=== PATIENT | female | born 1975 | race Caucasian/White ===

== ENCOUNTER 2016-06-07 17:43 | Emergency (ER) | payer OTHER ==
--- NOTE | 2016-06-07 18:15 | UCPHY ---
H & P Patient Type: New Chief Complaint Nursing Narrative: sore throat, body aches, headache x 8 days. son has strep Time Seen by Provider: 06/07/16 18:09 HPI/ROS: CHIEF COMPLAINT: Sore throat HISTORY OF PRESENT ILLNESS: Patient is a 41-year-old female who comes to the Urgent Care complaining of a sore throat and low-grade fever and mild headache for the last 8 or 9 days. Today her daughter was diagnosed with strep throat. She is requesting antibiotics. She denies having any chest pain, shortness of breath or abdominal pain. She has a history of migraines but states that her headache is not typical of migraines and is much more mild. No visual symptoms. REVIEW OF SYSTEMS: Constitutional: See HPI EENTM: see HPI Respiratory: denies: cough, shortness of breath Cardiac: denies: chest pain, irregular heart rate, lightheadedness, palpitations Gastrointestinal/Abdominal: denies: abdominal pain, diarrhea, nausea, vomiting, blood streaked stools Genitourinary: denies: dysuria, frequency, hematuria, pain Musculoskeletal: denies: joint pain, muscle pain Skin: denies: lesions, rash, jaundice, bruising Neurological: See HPI denies: numbness, paresthesia, tingling, dizziness, weakness Hematologic/Lymphatic: denies: blood clots, easy bleeding, easy bruising Immunologic/allergic: denies: HIV/AIDS, transplant EXAM: GENERAL: Well-appearing, well-nourished and in no acute distress. HEAD: Atraumatic, normocephalic. EYES: Pupils equal round and reactive to light, extraocular movements intact, sclera anicteric, conjunctiva are normal. ENT: Oropharynx erythematous, no exudate, tympanic membranes clear, sinus congestion, anterior cervical lymphadenopathy NECK: Normal range of motion, supple without lymphadenopathy or JVD. LUNGS: Breath sounds clear to auscultation bilaterally and equal. No wheezes rales or rhonchi. HEART: Regular rate and rhythm without murmurs, rubs or gallops. ABDOMEN: Soft, nontender, normoactive bowel sounds. No guarding, no rebound. No masses appreciated. BACK: No CVA tenderness, no spinal tenderness, step-offs or deformities EXTREMITIES: Normal range of motion, no pitting or edema. No clubbing or cyanosis. NEUROLOGICAL: Cranial nerves II through XII grossly intact. Normal speech, normal gait. 5/5 strength, normal movement in all extremities, normal sensation PSYCH: Normal mood, normal affect. SKIN: Warm, dry, normal turgor, no visible rashes or lesions. Source: Patient Exam Limitations: No limitations - Personal History LMP (Females 10-55): 8-14 Days Ago - Medical/Surgical History Hx Asthma: No Hx Chronic Respiratory Disease: No Hx Diabetes: No Hx Cardiac Disease: No Hx Renal Disease: No Hx Cirrhosis: No Hx Alcoholism: No Hx HIV/AIDS: No Hx Splenectomy or Spleen Trauma: No Other PMH: migraines - Family History Significant Family History: No pertinent family hx - Social History Smoking Status: Never smoked Alcohol Use: Sober Drug Use: None Constitutional: Initial Vital Signs Temperature (C) 37 C 06/07/16 17:53 Heart Rate 61 06/07/16 17:53 Respiratory Rate 16 06/07/16 17:53 Blood Pressure 102/77 06/07/16 17:53 O2 Sat (%) 99 06/07/16 17:53 O2 Delivery Mode Room Air Allergies/Adverse Reactions: Penicillins Allergy (Verified 06/07/16 17:53) Home Medications: Medication Instructions Recorded AZITHROMYCIN [Z-PACK] 250 mg PO DAILY #6 tab 06/07/16 Zomig 06/07/16 Medical Decision Making ED Course/Re-evaluation: The patient has symptoms classic for strep throat and a exposure 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 Her son was strep positive today at the web marketing analyst's office. We decided not to perform testing here but simply to treat. Patient declines further workup or testing. Differential Diagnosis: Partial list of the Differential diagnosis considered include but were not limited to; strep throat, pharyngitis, abscess, mononucleosis and although unlikely based on the history and physical exam, I also considered migraine, sepsis, meningitis. I discussed these differential diagnoses and the plan with the patient as well as the usual and expected course. The patient understands that the diagnosis is provisional and that in medicine we are not always correct and that further workup is often warranted. Usual and customary warnings were given. All of the patient's questions were answered. The patient was instructed to return to the emergency department should the symptoms at all worsen or return, otherwise to followup with the physician as we discussed. - Data Points Laboratory Results: 06/07/16 06/07/16 Unknown 18:00 Group A Strep Screen NEGATIVE (NEGATIVE) Group A Strep DNA Pending Departure - Departure Disposition: Home, Routine, Self-Care Clinical Impression: Strep throat Condition: Fair Instructions: Strep Throat (ED) Referrals: Jo Silva MD [[facility] [place] Primary Care Provider] - As per Instructions Prescriptions: AZITHROMYCIN [Z-PACK] 250 mg PO DAILY #6 tab - PQRS PQRS Measurement: Not applicable
[2016-06-07 18:33] VITALS: BP 110/65; PULSE 72; RESP 18; TEMP 98.6; O2SAT 95
== END 2016-06-07 18:32 | disposition home or self-care (01) ==
LOC: CED 17:43
DX: R07.0 Pain in throat (principal); R50.9 Fever, unspecified; Z20.818 Contact with and (suspected) exposure to other bacterial communicable diseases
CPT/HCPCS: 87880-PO; G0463-PO

== ENCOUNTER → 2018-03-09 | Outpatient (CLI) | payer OTHER | LOC: BMCIMAGING 14:50 | PROVIDERS: ATTEND Family Medicine | DX: Z12.31 Encounter for screening mammogram for malignant neoplasm of breast (principal) ==

== ENCOUNTER → 2018-03-17 | Outpatient (CLI) | payer OTHER | LOC: BMCIMAGING 10:46 | PROVIDERS: ATTEND Family Medicine | DX: R92.8 Other abnormal and inconclusive findings on diagnostic imaging of breast (principal) ==

== ENCOUNTER → 2018-04-05 | Outpatient (CLI) | payer OTHER ==
[~2018-04-05] MED LIST: BUPIVACAINE 0.5% 30 ML SDV ONE; LIDOCAINE 1% 300 MG/30 ML SDV ONE
== END ==
LOC: FIMAGING 07:16
PROVIDERS: ATTEND Family Medicine
PROC: 0HBU3ZX Excision of Left Breast, Percutaneous Approach, Diagnostic (ICD-10-PCS; principal; 2018-04-05)
DX: D05.82 Other specified type of carcinoma in situ of left breast (principal)

== ENCOUNTER → 2018-04-12 | Outpatient (CLI) | payer OTHER ==
[~2018-04-12] MED LIST changes: -BUPIVACAINE 0.5% 30 ML SDV ONE; +GADOBUTROL 10 ML VIAL IVP ONE; -LIDOCAINE 1% 300 MG/30 ML SDV ONE
== END ==
LOC: FIMAGING 07:39
PROVIDERS: ATTEND Family Medicine
DX: N64.59 Other signs and symptoms in breast (principal); N63.22 Unspecified lump in the left breast, upper inner quadrant; C50.912 Malignant neoplasm of unspecified site of left female breast
CPT/HCPCS: A9585; C8908

== ENCOUNTER → 2018-04-14 | Outpatient (CLI) | payer OTHER | LOC: FIMAGING 14:18 ==

== ENCOUNTER 2018-04-20 07:48 | Outpatient (CLI) | payer OTHER ==
[2018-04-20] MEDS ORDERED: FLUMAZENIL 0.5 MG/5 ML MDV IVP PRN (08:07)
[2018-04-20] MEDS ORDERED: fentaNYL 100 MCG/2 ML INJ IVP PRN (08:07)
[2018-04-20] MEDS ORDERED: MIDAZOLAM 2 MG/2 ML VIAL IVP PRN (08:07)
[2018-04-20] MEDS ORDERED: NALOXONE HCL 0.4 MG/ML INJ IVP PRN (08:07)
[2018-04-20] MEDS ORDERED: NS 1,000 ML IV SCH (08:15)
[2018-04-20] MEDS ORDERED: GADOBUTROL 10 ML VIAL IVP ONE (08:26)
[2018-04-20] MEDS ORDERED: LIDOCAINE 1% 5 ML SDV ONE (08:42)
[2018-04-20] MEDS ORDERED: BUPIVACAINE 0.5% 30 ML SDV ONE (08:43)
[2018-04-20] MEDS ORDERED: NA BICARBONATE 50 MEQ/50 ML VIAL ONE (08:43)
[2018-04-20] MEDS ORDERED: fentaNYL 100 MCG/2 ML INJ ONE ×2 (09:00→09:12)
[2018-04-20] MEDS ORDERED: FLUMAZENIL 0.5 MG/5 ML MDV IVP ONE (09:12)
[2018-04-20] MEDS ORDERED: MIDAZOLAM 2 MG/2 ML VIAL ONE (09:12)
[2018-04-20] MEDS ORDERED: NALOXONE HCL 0.4 MG/ML INJ ONE (09:12)
--- NOTE | 2018-04-20 09:24 | PDGENHP ---
History & Physical Chief Complaint: left breast cancer, abnormality right breast Cardiorespiratory Assessment: heart rate regular, lungs clear
--- NOTE | 2018-04-20 09:25 | PDPROPOC ---
Sedation Plan of Care Sedation Plan of Care: vital signs stable, mental status noted, patient educated of risks, benefits, alternatives, patient can tolerate sedation ASA Classification: ASA 1 Planned drugs: fentanyl, midazolam Mallampati Score: Class 1 Mallampati Reference Image: Patient passed 3-3-2 rule?: Yes
[2018-04-20 11:47] VITALS: BP 110/67
[2018-04-20] MEDS ORDERED: ACETAMINOPHEN 325 MG TAB PO PRN (12:13)
[2018-04-20] MEDS ORDERED: ONDANSETRON 4 MG/2 ML VIAL IVP PRN (12:13)
== END 2018-04-20 11:48 | disposition home or self-care (01) ==
LOC: FIMAGING 07:48
PROVIDERS: ATTEND Surgery
DX: R92.8 Other abnormal and inconclusive findings on diagnostic imaging of breast (principal); Z85.3 Personal history of malignant neoplasm of breast
CPT/HCPCS: A9585; J2250; J2310; J3010

== ENCOUNTER 2018-05-12 06:31 | Day surgery (SDC) | payer OTHER ==
[2018-05-12] MEDS ORDERED: ceFAZolin 2 GM/DEXTROSE 100 ML IV ONE (06:48)
[2018-05-12] MEDS ORDERED: LR 1,000 ML IV ONE (06:50)
[2018-05-12] MEDS ORDERED: LIDOCAINE 1% 300 MG/30 ML SDV ONE (07:27)
[2018-05-12] MEDS ORDERED: GABAPENTIN 300 MG CAP PO ONE (09:00)
--- NOTE | 2018-05-12 10:49 | PDANEPAE ---
ANE Past Medical History - Cardiovascular History Hx Hypertension: No Hx Arrhythmias: No Hx Chest Pain: No Hx Coronary Artery / Peripheral Vascular Disease: No Hx CHF / Valvular Disease: No Hx Palpitations: No - Pulmonary History Hx COPD: No Hx Asthma/Reactive Airway Disease: No Hx Recent Upper Respiratory Infection: No Hx Oxygen in Use at Home: No Hx Sleep Apnea: No Sleep Apnea Screening Result - Last Documented: Negative Pulmonary History Comment: none - Neurologic History Hx Cerebrovascular Accident: No Hx Seizures: No Hx Dementia: No - Endocrine History Hx Diabetes: No - Renal History Hx Renal Disorders: No - Liver History Hx Hepatic Disorders: No - Neurological & Psychiatric Hx Hx Neurological and Psychiatric Disorders: No - Cancer History Hx Cancer: Yes Cancer History Comment: L breast CA - Congenital Disorder History Hx Congenital Disorders: Yes 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 BIOPSY ANE Review of Systems Review of Systems: - Exercise capacity METS (RN): 5 METS ANE Patient History - Allergies Allergies/Adverse Reactions: Penicillins Allergy (Verified 05/03/18 16:34) - Home Medications Home Medications: Zomig PRN 06/07/16 [Last Taken 05/08/18] Ambien PRN 04/18/18 [Last Taken 05/11/18] - NPO status NPO Since - Liquids (Date): 05/12/18 NPO Since - Liquids (Time): 07:00 NPO Since - Solids (Date): 05/11/18 NPO Since - Solids (Time): 20:00 - Smoking Hx Smoking Status: Never smoked - Family Anes Hx Family Hx Anesthesia Complications: none ANE Labs/Vital Signs - Vital Signs Blood Pressure: 103/71 Heart Rate: 59 Respiratory Rate: 16 O2 Sat (%): 96 Height: 170.18 cm Weight: 66.224 kg ANE Physical Exam - ASA Status ASA Status: II ANE Anesthesia Plan Anesthesia Plan: GA w LMA
--- NOTE | 2018-05-12 10:51 | PDHPUP ---
History & Physical Update H&P update statement: This history and physical update is based on an assessment of the patient which was completed after admission or registration (within 24 hours), but prior to the surgery/procedure. H&P update: H&P reviewed & patient examined, no change in patient's condition since H&P completed
[2018-05-12] MEDS ORDERED: MIDAZOLAM 2 MG/2 ML VIAL ONE (10:52)
[2018-05-12] MEDS ORDERED: fentaNYL 100 MCG/2 ML INJ ONE (10:53)
[2018-05-12] MEDS ORDERED: ONDANSETRON 4 MG/2 ML VIAL ONE ×2 (10:54→13:03)
[2018-05-12] MEDS ORDERED: PROPOFOL 200 MG/20 ML VIAL ONE (10:54)
[2018-05-12] MEDS ORDERED: LIDOCAINE 2% JELLY 6 ML TOPICAL SYR ONE (10:54)
[2018-05-12] MEDS ORDERED: METOCLOPRAMIDE 10 MG/2 ML VIAL ONE (10:54)
[2018-05-12] MEDS ORDERED: CEFAZOLIN 2 GM/DEXTROSE/100 ML BAG IV ONE (10:55)
[2018-05-12] MEDS ORDERED: BUPIVACAINE/EPI 0.25% 30 ML SDV ONE (11:04)
[2018-05-12] MEDS ORDERED: NA BICARBONATE 50 MEQ/50 ML VIAL ONE (11:04)
[2018-05-12] MEDS ORDERED: LIDO/EPI 1% **for epidural** 30 ML SDV ONE (11:05)
[2018-05-12] MEDS ORDERED: DEXAMETHASONE 4 MG/ML VIAL IVP ONE (12:00)
[2018-05-12] MEDS ORDERED: AVITENE POWDER 1 GM JAR TP ONE (12:24)
[2018-05-12] MEDS ORDERED: ONDANSETRON 4 MG/2 ML VIAL IVP PRN (13:00)
[2018-05-12] MEDS ORDERED: NALOXONE HCL 0.4 MG/ML INJ IVP PRN (13:00)
[2018-05-12] MEDS ORDERED: LR 500 ML IV PRN (13:00)
[2018-05-12] MEDS ORDERED: HYDROCODONE/APAP 5/325 TAB PO PRN (13:00)
[2018-05-12] MEDS ORDERED: PROMETHAZINE HCL 25 MG/ML INJ IVP PRN (13:00)
[2018-05-12] MEDS ORDERED: fentaNYL 100 MCG/2 ML INJ IVP PRN (13:00)
[2018-05-12] MEDS ORDERED: MEPERIDINE 25 MG/0.5 ML AMP IVP PRN (13:00)
[2018-05-12] MEDS ORDERED: DEXAMETHASONE 4 MG/ML VIAL IVP PRN (13:00)
--- NOTE | 2018-05-12 13:01 | POSTANESTH ---
Post Anesthetic Evaluation Cardiovascular Status: Normal, Stable Respiratory Status: Normal, Stable Level of Consciousness/Mental Status: Can Participate in Eval Pain Control: Adequate, Prn Tx Ordered Nausea/Vomiting Control: Adequate, Prn Tx Ordered Complications Possibly Related to Anesthesia: None Noted
[2018-05-12] MEDS ORDERED: DEXAMETHASONE 4 MG/ML VIAL ONE (13:12)
[2018-05-12] MEDS ORDERED: PROMETHAZINE HCL 25 MG/ML INJ ONE (13:15)
[2018-05-12] MEDS ORDERED: ONDANSETRON DISINTEGRATING 4 MG TAB PO PRN (13:23)
--- NOTE | 2018-05-12 13:31 | POSTOPPROG ---
Post Op Note Date of Operation: 05/12/18 Surgeon: Curry Catherine (, FACS) Anesthesiologist: Ankush Machuca MD Anesthesia: GET(General Endotracheal) Pre-op Diagnosis: left breast cancer T1N0 Post-op Diagnosis: same Procedure: left partial mastectomy, sentinel node bx, immediated reconstruction Findings: 2/2 sentinel nodes negative for malignancy by frozen section Inf/Abcess present in the surg proc area at time of surgery?: No Bowel Protocol: N/A Clean Closure Performed: N/A Specimen(s): 1. left axillary sentinel nodes x 2 2. left partial mastectomy specimen 3. additional superior margin
[2018-05-12] MEDS ORDERED: HYDROCODONE/APAP 5/325 TAB ONE (14:48)
--- NOTE | 2018-05-12 14:52 | GOP ---
[f rep st] OPERATIVE REPORT DATE OF OPERATION: 05/12/2018 SURGEON: Curry Catherine MD, FACS ANESTHESIA: General endotracheal. ANESTHESIOLOGIST: Ankush Machuca MD. PREOPERATIVE DIAGNOSIS: Left breast carcinoma. POSTOPERATIVE DIAGNOSIS: Left breast carcinoma. PROCEDURE PERFORMED: 1. Left partial mastectomy with preoperative ultrasound-guided needle localization. 2. [place] lymph node mapping and biopsy. 3. Immediate reconstruction with adjacent tissue transfer. FINDINGS: 2/2 sentinel nodes negative by frozen section for evidence of malignancy. Permanent section pending. Left partial mastectomy specimen with tumor and clip confirmed by specimen mammography. Additional superior margin sent for permanent section. SPECIMENS: [place] nodes were negative by frozen section. Permanent section pending. ESTIMATED BLOOD LOSS: 50 cc. DESCRIPTION OF PROCEDURE: After informed consent was obtained, the patient was brought to the operating room and placed under general anesthesia. The left arm was extended, and all pressure points were padded. The chest wall was prepped and draped in the usual fashion. Before proceeding a time-out and identification of the patient were performed. The patient had a wire exiting the left breast at approximately 10 o'clock position directed medially, posteriorly and slightly inferiorly. A planned incision site at the areolar border was marked in the skin with a marking pen and infiltrated with 0.25% Marcaine with epinephrine. As this was allowed to set, the axilla was interrogated with the gamma detector and the point of maximum intensity identified and marked on the skin with a marking pen. The skin was infiltrated here with 0.25% Marcaine, incised transversely near the base of the axilla, and dissection carried out through the skin, subcutaneous tissues and superficial axillary fascia. The 2 sentinel nodes were found in the inferior level 1 chain, somewhat posteriorly close to the latissimus border. These were pulled up into the incision, confirmed to be increased activity over background, and were both dissected from the surrounding fibrofatty tissue of the axilla, taking care to hemoclip small lymphovascular structures. Once the nodes were removed and the operative field appeared hemostatic, they were submitted for frozen section. Additional local anesthetic was infiltrated into the deep portion of the axillary incision. Subcutaneous tissues were closed with 3-0 Monocryl suture. Skin was closed with 4-0 Monocryl suture in a subcuticular fashion. The partial mastectomy was then performed as follows. A circumareolar incision was made from the 6 to 12 o 'clock position, and dissection carried out in the subcutaneous plane into the upper inner quadrant, intercepting the wire into the incision. The breast tissue around the shaft and tip of the wire was then widely excised down to the prepectoral fascia, and the specimen was removed from the field and inspected. The tumor was palpable within the specimen and appeared to be closest to the superior margin. Specimen was marked for orientation with a margin-marker kit, separately designating the medial, lateral, anterior, posterior, superior and inferior margins. The superior margin was re-excised to a depth of approximately 8 mm, tagged for orientation and submitted for permanent section. Hemostasis was secured with cautery. Immediate reconstruction was performed by elevating breast flaps superiorly and inferiorly for a distance of 2 to 2.5 cm on either side of the lumpectomy cavity. Once we had seen the specimen mammogram, Avitene microfibrillar collagen was placed into the deep portion of the wound, which was also marked with small titanium clips for possible partial breast radiation. The breast flaps were closed over the lumpectomy cavity with interrupted 3-0 Monocryl suture. Subcutaneous tissues were closed with 3-0 Monocryl suture, and the skin was closed with 4-0 Monocryl suture in a subcuticular fashion. Topical Dermabond was applied to both incisions. Patient was subsequently extubated and returned to the recovery room in satisfactory condition. Needle, sponge and instrument counts were correct. COMPLICATIONS: None. /[id number]/MODL MTDD
[2018-05-12 14:53] VITALS: BP 115/65
== END 2018-05-12 15:27 | disposition home or self-care (01) ==
LOC: FSGY 06:31 → EDSTATUS 12:45 → FSGY 15:27
PROVIDERS: ATTEND Surgery
PROC: 0HHU3YZ Insertion of Other Device into Left Breast, Percutaneous Approach (ICD-10-PCS; 2018-05-12)
PROC: 3E0W3HZ Introduction of Radioactive Substance into Lymphatics, Percutaneous Approach (ICD-10-PCS; 2018-05-12)
PROC: 0HBU0ZZ Excision of Left Breast, Open Approach (ICD-10-PCS; principal; 2018-05-12 12:45)
PROC: 07B60ZX Excision of Left Axillary Lymphatic, Open Approach, Diagnostic (ICD-10-PCS; principal; 2018-05-12 12:45)
PROC: 0JX60ZC Transfer Chest Subcutaneous Tissue and Fascia with Skin, Subcutaneous Tissue and Fascia, Open Approach (ICD-10-PCS; principal; 2018-05-12 12:45)
DX: C50.212 Malignant neoplasm of upper-inner quadrant of left female breast (principal); Z17.0 Estrogen receptor positive status [ER+]; Z88.0 Allergy status to penicillin
CPT/HCPCS: 14000; 19301; 38525; 76098; 78195; A9520; J0690; J1100; J2250; J2405; J2550; J2704; J2765; J3010